=== PATIENT | female | born 1990 | race Two or more races ===

== ENCOUNTER 2016-10-14 15:41 | Inpatient (IN) | payer OTHER ==
[~2016-10-14] VITALS: Ht 157.5 cm; Wt 95.3 kg
--- NOTE | ~2016-10-14 | PN ---
Unit #: [id number] #: [id number] Patient: EMORY HORVATH [id number] [facility] [address] [place] [address] [id number] MR#: [id number] NAME: EMORY HORVATH ROOM: [facility] Age: 26 Sex: F Admission Date: 10/14/2016 : 1990 Attending Physician: Carlitos Bear M.D. Admitting Physician: Carlitos Bear M.D. Primary Care Physician: Generic Doctor Not In System [facility] PROGRESS NOTES DATE OF SERVICE 10/16/2016 DISCUSSION Ms. Daley is a 26-year-old female seen on 10/16/2016. Patient interviewed, chart reviewed. Obtained information from nursing staff. Patient continues to be sad, dysphoric, withdrawn but reports medication is helping her. Currently on Zyprexa, Synthroid. Complete review of systems unremarkable. MENTAL STATUS EXAMINATION General appearance, patient dressed casually. Attention span and concentration fair. Oriented to place and person. Mood and affect labile. Speech monotone. Thought process concrete. Patient denied any thoughts of harming self or others. Recent and remote memory poor. Insight and judgement poor. DIAGNOSES Mood disorder NOS. ASSESSMENT/PLAN Advise to continue with current medication and therapeutic protocol. If needed consider further adjustment of medication. Dictated by... Kam Lanza/neftali TD: 10/18/2016 23:37 JOB #: [id number] [facility] PROGRESS NOTES Page 1 of 1 X Carlitos Bear MD X PROGRESS NOTE
--- NOTE | ~2016-10-14 | PN ---
Unit #: [id number] #: [id number] Patient: EMORY HORVATH [id number] [facility] [address] [place] [address] [id number] MR#: [id number] NAME: EMORY HORVATH ROOM: [facility] Age: 26 Sex: F Admission Date: 10/14/2016 : 1990 Attending Physician: Carlitos Bear M.D. Admitting Physician: Carlitos Bear M.D. Primary Care Physician: Generic Doctor Not In System [facility] PROGRESS NOTES DATE OF SERVICE: 10/17/2016 DISCUSSION Ms. Daley is a 26-year-old female, seen on 10/17/2016. The patient interviewed, chart reviewed, and obtained information from nursing staff. The patient reports medication is making her sleepy, but overall maintained safe behavior. Denied any thoughts of harming self or others. REVIEW OF SYSTEMS Complete review of systems unremarkable. MENTAL STATUS EXAMINATION General appearance, the patient dressed casually. Attention span and concentration, fair. Oriented in time, place, and person. Mood and affect, sad and dysphoric. Speech, monotone. Thought process, concrete. The patient denied any thoughts of harming self or others. Recent and remote memory, poor. Insight and judgment, poor. DIAGNOSIS Mood disorder, not otherwise specified. ASSESSMENT AND PLAN Advised to continue with current medication and therapeutic protocol. If needed, consider further adjustment of medication. Continue with Zyprexa 5 mg at bedtime, Synthroid, Vistaril and trazodone p.r.n. Dictated by... Kam Lanza/marixa TD: 10/18/2016 18:46 JOB #: [id number] Unit #: [id number] #: [id number] Patient: EMORY HORVATH PROGRESS NOTES Page 1 of 1 X Carlitos Bear MD PROGRESS NOTE
--- NOTE | ~2016-10-14 | CO ---
Unit #: [id number] #: [id number] Patient: EMORY HORVATH [id number] [facility] [address] [place] [address] [id number] MR#: [id number] NAME: EMORY HORVATH ROOM: [facility] Age: 26 Sex: F Admission Date: 10/14/2016 : 1990 Attending Physician: Carlitos Bear M.D. Primary Care Physician: Generic Doctor Not In System Consultation Date: 10/17/2016 CONSULTATION REPORT Ordering provider is Dr. Bear. REASON FOR CONSULT Rash on her chest and prolonged. SUBJECTIVE The patient reports that she has had a rash between her breasts for several weeks. It is itching, but not painful. She reports that it has a strange odor coming from it. She also reports that her periods have been abnormal. She used to be on Depo-Provera for management, but she stopped taking because she was afraid of the added hormones would make her more aggressive. OBJECTIVE The patient has an erythematous scaly rash noted between her breast. There are no papules present. There is no drainage or streaking noted. ASSESSMENT 1. Intertrigo. 2. Abnormal periods. PLAN Plan is to start the patient on ketoconazole cream. She was instructed to follow up with her PCP or IDENTITY MANAGEMENT CONSULTANT regarding her. Then, she is being discharged tomorrow. Dictated by... Pratik Summers/marixa TD: 10/17/2016 21:23 JOB #: [id number] Unit #: [id number] #: [id number] Patient: EMORY HORVATH CONSULTATION REPORT Page 1 of 1 X BASHIR HOUSE APRN CONSULTATION REPORT
--- NOTE | ~2016-10-14 | HP ---
Unit #: [id number] #: [id number] Patient: EMORY HORVATH [id number] [place] [address] [id number] I MR#: [id number] NAME: EMORY HORVATH ROOM: [facility] Age: 26 Sex: F Admission Date: 10/14/2016 : 1990 Attending Physician: Carlitos Bear M.D. Admitting Physician: Carlitos Bear M.D. Primary Care Physician: Generic Doctor Not In System HISTORY AND PHYSICAL HISTORY OF PRESENT ILLNESS Emory is a 26 year old admitted to [address] [place] [address] with depression, verbalizing wanting to hurt herself and anger issues. PAST MEDICAL HISTORY Nothing significant. PAST SURGICAL HISTORY Nothing reported. ALLERGIES No known drug allergies. SOCIAL HISTORY She denies cigarettes, alcohol and illicit drug use. FAMILY HISTORY Medically noncontributory. REVIEW OF SYSTEMS CONSTITUTIONAL: No fever or chills. HEENT: Denies any sore throat, ear pain or runny nose. CARDIOVASCULAR: Denies chest pain, irregular heart rhythm or palpitations. CHEST: Denies shortness of breath or cough. No hemoptysis. GASTROINTESTINAL: Denies nausea, vomiting, diarrhea or chronic constipation. ENDOCRINE: Denies history of increased thirst or urination. No recent significant weight loss or gain. GENITOURINARY: Denies dysuria, frequency, or hematuria. SKIN: Denies any rashes. HEMATOLOGIC: Denies history of increased bleeding or bruising. MUSCULOSKELETAL: Denies any hot, swollen joints. No generalized muscle pain. NEUROLOGIC: Denies problems with vision or speech. No frequent, severe headaches. No numbness, tingling or weakness in any extremities. Denies loss of bladder or bowel control. CURRENT MEDICATIONS 1. Zyprexa 5 mg q.h.s. 2. Vistaril p.r.n. 3. Desyrel p.r.n. 4. Milk of Magnesia p.r.n. 5. Maalox p.r.n. Unit #: [id number] #: [id number] Patient: EMORY HORVATH 6. Tylenol p.r.n. PHYSICAL EXAMINATION GENERAL: Alert, obese, in no apparent distress. VITAL SIGNS: Blood pressure 130/82, heart rate 80, respirations 16, temperature 98.6. WEIGHT: 210. HEIGHT: 5 feet 2 inches. SKIN: Warm and dry without rash or lesion. HEENT: Normocephalic. TMs not viewed. Oral and nasal passages clear. Conjunctivae clear. PERRLA. EOMs intact. NECK: Supple without lymphadenopathy or thyromegaly. HEART: Regular rate and rhythm without murmur. LUNGS: Clear. ABDOMEN: Soft, nontender. : Not done. EXTREMITIES: No evidence of cyanosis, clubbing or edema. Moves all without focal deficit. NEUROLOGICAL: Grossly within normal limits. Cranial Nerves: II: Visual mejia are intact. III, IV AND : Extraocular movements are intact. Pupils are equal, round and reactive to light. V: Facial sensation is grossly normal. VII: Facial movements and expression are normal. VIII: Auditory acuity grossly intact. IX, X: Uvula is midline. Phonation is normal. XI: Patient shrugs shoulders and turns head normally. XII: Tongue protrudes in the midline. Sensory and Motor Function: Sensory and motor sensation is grossly normal. Motor: moves all extremities well. Coordination: Gait is normal. Deep Tendon Reflexes: Intact. IMPRESSION Psychiatric admission. RECOMMENDATIONS PSYCHIATRIC: Per psychiatrist. MEDICAL: See no contraindication to participate in facility's activities. MEDICAL PROGNOSIS Good. MEDICAL CONDITION Stable. Dictated by... Marilia Gilliam P.A.-C. for Kam Olmos/freddy TD: 10/15/2016 17:43 JOB #: [id number] Unit #: [id number] #: [id number] Patient: EMORY HORVATH HISTORY AND PHYSICAL Page 1 of 1 X Marilia Gilliam HISTORY AND PHYSICAL
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
--- NOTE | ~2016-10-14 | DS ---
Unit #: [id number] #: [id number] Patient: EMORY HORVATH [id number] [facility] [address] [place] [address] [id number] MR#: [id number] NAME: EMORY HORVATH ROOM: [facility] Age: 26 Sex: F Admission Date: 10/14/2016 : 1990 Discharge Date: 10/18/2016 Attending Physician: Carlitos Bear M.D. Primary Care Physician: Generic Doctor Not In System DISCHARGE SUMMARY REASON FOR ADMISSION Thoughts of self-harming. DIAGNOSTIC STUDIES LABORATORY RESULTS: Urine drug screen negative. Labs were unremarkable, except TSH 7.82. HOSPITAL COURSE The patient was admitted to inpatient unit on 10/14/2016 and discharged on 10/18/2016. The patient was treated with group therapy, individual therapy, and medication management. The patient was responsive to treatment and showed improvement. Subsequently, the patient was discharged with a plan to follow up in outpatient program. DISCHARGE MEDICATIONS Zyprexa 5 mg at bedtime for psychosis and mood symptom and Synthroid 0.025 mg once daily for hypothyroidism. DISCHARGE DIAGNOSES Psychiatric: Major depressive disorder, recurrent, severe, F33.2 and rule out bipolar mood disorder. Secondary diagnosis: Deferred. Medical diagnosis: Hypothyroidism. Stressors: Psychosocial stressors. DISCHARGE INSTRUCTIONS The patient to follow up in outpatient clinic as per older adult social work specialist. CONDITION ON DISCHARGE The patient was pleasant and cooperative. Denied any psychotic symptom or any suicidal ideation. PROGNOSIS Guarded. DIET AND ACTIVITY As tolerated. Dictated by... Unit #: [id number] #: [id number] Patient: EMORY HORVATH Kam Lanza/marixa TD: 10/18/2016 13:53 JOB #: [id number] DISCHARGE SUMMARY Page 1 of 1 X Carlitos Bear MD X DISCHARGE SUMMARY
--- NOTE | ~2016-10-14 | PN ---
Unit #: [id number] #: [id number] Patient: EMORY HORVATH [id number] [facility] [address] [place] [address] [id number] MR#: [id number] NAME: EMORY HORVATH ROOM: [facility] Age: 26 Sex: F Admission Date: 10/14/2016 : 1990 Attending Physician: Carlitos Bear M.D. Admitting Physician: Carlitos Bear M.D. Primary Care Physician: Generic Doctor Not In System [facility] PROGRESS NOTES DATE 10/15/2016 DISCUSSION Ms. Daley is a 26-year-old female seen on 10/15/2016. Patient interviewed. Chart reviewed. Obtained information from nursing staff. Patient was sad, dysphoric, flat affect, withdrawn, isolative, guarded. Patient still reported feeling depressed. Patient denied any complaints. Complete review of system unremarkable. MENTAL STATUS EXAMINATION General appearance, patient dressed casually. Attention span, concentration fair. Oriented in place and person. Mood and affect labile. Speech monotone. Thought process concrete. Patient denied any thoughts of harming self or others but still feeling sad, depressed, withdrawn, isolative. Recent and remote memory poor. Insight and judgement poor. DIAGNOSES 1. Mood disorder NOS. 2. Rule out bipolar mood disorder. ASSESSMENT/PLAN Advised to continue with current therapeutic intervention to improve coping skill. If needed, consider medication. Patient's TSH was high at 7.82. Will get a medical consult. test negative. Dictated by... Kam Lanza/freddy TD: 10/15/2016 16:44 JOB #: [id number] Unit #: [id number] #: [id number] Patient: EMORY HORVATH PROGRESS NOTES Page 1 of 1 X Carlitos Bear MD PROGRESS NOTE
[2016-10-15 10:08] LABS: BASOPHIL% 0.3 % (0-2.5); EOSINOPHIL# 0.1 X10e3 (0-0.7); EOSINOPHIL% 1.6 % (0.0-7.0); HEMATOCRIT 35.5 % (35.0-45.0); HEMOGLOBIN 11.8 gm/dL (12.0-16.0); LYMPHOCYTE# 2.8 X10e3 (1.0-3.5); LYMPHOCYTE% 36.5 % (17.0-45.0); MEAN CELL VOLUME 80.6 FL (83-96); MEAN CORPUSCULAR HEMOGLOBIN 26.7 PG (28-34); MEAN CORPUSCULAR HGB CONC 33.1 g/dL (30-36); MEAN PLATELET VOLUME 7.2 FL (6.5-11.5); MONOCYTE# 0.6 X10e3 (0-1.0); MONOCYTE% 8.4 % (3.0-12.0); NEUTROPHIL% 53.2 % (40-75); PLATELET COUNT 431 X10e3 (140-420); RED BLOOD COUNT 4.41 X10e (3.90-5.30); WHITE BLOOD COUNT 7.6 X10e3 (4.0-10.5)
[2016-10-15 10:21] LABS: THYROID STIMULATING HORMONE 7.82 uIU/ml (0.34-5.60)
[2016-10-15 10:22] LABS: DIFF IND NO
[2016-10-15 10:27] LABS: FREE THYROXIN (T4) 0.72 ng/dL (0.58-1.64)
[2016-10-15 10:31] LABS: BILIRUBIN,TOTAL 0.7 mg/dL (0.2-2.0); BUN/CREATININE RATIO 14.44; CALCIUM SERUM 9.4 mg/dL (8.4-10.2); CREATININE SERUM 0.9 mg/dL (0.6-1.4); GLOM FILT RATE Estimated 88.9 mL/min (>60); POTASSIUM 4.3 mmol/L (3.5-5.1); PROTEIN TOTAL SERUM 7.1 g/dL (6.0-8.3)
[2016-10-15 12:24] LABS: URINE APPEARANCE CLEAR; URINE BILIRUBIN NEG (NEG); URINE BLOOD NEG (NEG); URINE COLOR YELLOW; URINE GLUCOSE NEG (NEG); URINE KETONE NEG (NEG); URINE LEUKOCYTE ESTERASE NEG (NEG); URINE NITRATE NEG (NEG); URINE PROTEIN NEG (NEG); URINE SPECIFIC GRAVITY 1.022 (1.003-1.035)
[2016-10-15 12:33] LABS: AMPHETAMINE NEG (NEG); BARBITURATES NEG (NEG); BENZODIAZEPINES NEG (NEG); COCAINE NEG (NEG); MARIJUANA NEG (NEG); OPIATES NEG (NEG); TRICYCLIC ANTIDEPRESSANTS NEG (NEG); U METHADONE NEG (NEG)
== END 2016-10-18 14:00 | disposition home or self-care (01) | DRG 885 ==
LOC: P2L 17:12
PROVIDERS: Psychiatry & Neurology Psychiatry
DX: F33.2 Major depressive disorder, recurrent severe without psychotic features (principal); E03.9 Hypothyroidism, unspecified; Z81.3 Family history of other psychoactive substance abuse and dependence; N92.6 Irregular menstruation, unspecified; L30.4 Erythema intertrigo
CPT/HCPCS: 80053; 80307; 81003; 84439; 84443; 84703; 85025